=== PATIENT | female | born 2000 | race African-American/Black ===

== ENCOUNTER 2021-04-19 21:49 | Emergency (ER) | payer SELFPAY ==
[2021-04-20 00:23] LABS: BASOPHIL 0.5 % (0-2); EOSINOPHIL 3.7 % (0-5); HCT 37.1 % (37.0-47.0); HGB 12.2 g/dl (12.5-16.0); LYMPHOCYTE 32.7 % (15-48); MCH 29.4 pg (25.0-31.0); MCHC 32.9 g/dL (32.0-36.0); MCV 89.4 fL (78.0-100.0); MONOCYTE 6.9 % (0-12); MPV 10.4 fL (6.0-9.5); NRBC 0; PLT 281 K/uL (150-400); RBC 4.15 M/uL (4.20-5.40); WBC 5.6 K/uL (4.0-10.5)
[2021-04-20 00:46] LABS: BILIRUBIN NEGATIVE (NEGATIVE); BLOOD 3+ Ery/uL (NEGATIVE); CLARITY CLEAR (CLEAR); COLOR YELLOW (YELLOW); GLUCOSE (U) NORMAL (NORMAL); LEUKOCYTES NEGATIVE Leu/uL (NEGATIVE); NITRITE NEGATIVE (NEGATIVE); PROTEIN NEGATIVE (NEGATIVE)
[2021-04-20 00:52] LABS: URINARY RBC RARE; URINARY WBC RARE
[2021-04-20 00:53] LABS: BACTERIA TRACE
[2021-04-20 01:11] LABS: ALBUMIN 3.9 g/dL (3.4-5.0); BUN/CREAT RATIO (CALC) 9.7 RATIO; CREATININE 0.62 mg/dL (0.51-0.95); GLOBULIN (CALCULATION) 2.9 g/dL; POTASSIUM 3.8 mmol/L (3.5-5.1); TOTAL PROTEIN 6.8 g/dL (6.4-8.2)
[2021-04-20] MEDS ORDERED: ONDANSETRON ODT4 MG SL (01:42)
[2021-04-20] MEDS ORDERED: BENTYL10 MG PO (01:42)
== END 2021-04-20 02:00 | disposition home or self-care (01) ==
LOC: FER 21:49
PROVIDERS: Emergency Medicine Emergency Medical Services
DX: B34.9 Viral infection, unspecified (principal); F17.290 Nicotine dependence, other tobacco product, uncomplicated; J18.9 Pneumonia, unspecified organism; Z20.822 Contact with and (suspected) exposure to COVID-19; Z87.09 Personal history of other diseases of the respiratory system
CPT/HCPCS: 36415; 71045; 80053; 81001; 84484; 85025; 93005; J2405; J7120; U0002

== ENCOUNTER 2021-06-17 22:33 | Emergency (ER) | payer OTHER ==
[~2021-06-17 22:33] MED LIST: BENTYL10 MG PO; ONDANSETRON ODT4 MG SL
[2021-06-17 23:34] LABS: HCT 37.4 % (37.0-47.0); HGB 12.5 g/dl (12.5-16.0); MCH 29.4 pg (25.0-31.0); MCHC 33.4 g/dL (32.0-36.0); MPV 10.6 fL (6.0-9.5); RBC 4.25 M/uL (4.20-5.40); RDW 13.3 % (11.5-14.0); WBC 6.9 K/uL (4.0-10.5)
[2021-06-17 23:36] LABS: BILIRUBIN NEGATIVE (NEGATIVE); BLOOD 3+ Ery/uL (NEGATIVE); CLARITY CLEAR (CLEAR); COLOR YELLOW (YELLOW); GLUCOSE (U) NORMAL (NORMAL); LEUKOCYTES NEGATIVE Leu/uL (NEGATIVE); NITRITE NEGATIVE (NEGATIVE); PROTEIN NEGATIVE (NEGATIVE); UROBILINOGEN 0.2 mg/dL (0.2-1.0); pH 7.5 (5.0-9.0)
[2021-06-17 23:46] LABS: BACTERIA 1+; URINARY WBC RARE
[2021-06-18 00:06] LABS: ALBUMIN 4.7 g/dL (3.4-5.0); BILIRUBIN - TOTAL 0.6 mg/dL (0.2-1.0); BUN/CREAT RATIO (CALC) 9.1 RATIO; CREATININE 0.77 mg/dL (0.51-0.95); GLOBULIN (CALCULATION) 3.5 g/dL; TOTAL PROTEIN 8.2 g/dL (6.4-8.2)
[2021-06-18] MEDS ORDERED: METRONIDAZOLE500 MG PO ×3 (01:36→01:39)
[2021-06-21 00:08] LABS: CHLAMYDIA TRACHOMATIS, NAA Negative (Negative); NEISSERIA GONORRHOEAE, NAA Negative (Negative)
== END 2021-06-18 01:52 | disposition home or self-care (01) ==
LOC: FER 22:33
PROVIDERS: Emergency Medicine
DX: O03.4 Incomplete spontaneous abortion without complication (principal); O23.591 Infection of other part of genital tract in pregnancy, first trimester; O99.511 Diseases of the respiratory system complicating pregnancy, first trimester; J45.909 Unspecified asthma, uncomplicated; O99.331 Smoking (tobacco) complicating pregnancy, first trimester; F17.200 Nicotine dependence, unspecified, uncomplicated; Z3A.01 Less than 8 weeks gestation of pregnancy
CPT/HCPCS: 36415; 76817; 80053; 81001; 84702; 86850; 86900; 86901; 87210; 87491; 87591; 93005

== ENCOUNTER 2021-10-28 07:19 | Emergency (ER) | payer OTHER ==
[~2021-10-28 07:19] MED LIST changes: +METRONIDAZOLE500 MG PO
[2021-10-28 07:59] LABS: BILIRUBIN NEGATIVE (NEGATIVE); BLOOD 3+ Ery/uL (NEGATIVE); CLARITY CLEAR (CLEAR); COLOR YELLOW (YELLOW); GLUCOSE (U) NORMAL (NORMAL); LEUKOCYTES NEGATIVE Leu/uL (NEGATIVE); NITRITE NEGATIVE (NEGATIVE); PROTEIN NEGATIVE (NEGATIVE); UROBILINOGEN 0.2 mg/dL (0.2-1.0)
[2021-10-28 08:08] LABS: BACTERIA 1+; URINARY WBC RARE
[2021-10-28 09:19] LABS: BASOPHIL 0.4 % (0-2); HCT 38.4 % (37.0-47.0); HGB 12.9 g/dl (12.5-16.0); LYMPHOCYTE 18.7 % (15-48); MCH 30.4 pg (25.0-31.0); MCHC 33.6 g/dL (32.0-36.0); MCV 90.4 fL (78.0-100.0); MPV 10.4 fL (6.0-9.5); NEUTROPHIL 69.7 % (41-80); NRBC 0; PLT 261 K/uL (150-400); RBC 4.25 M/uL (4.20-5.40); RDW 12.7 % (11.5-14.0)
[2021-10-28 09:33] LABS: ALBUMIN 4.1 g/dL (3.4-5.0); BILIRUBIN - TOTAL 0.7 mg/dL (0.2-1.0); BUN/CREAT RATIO (CALC) 8.5 RATIO; CREATININE 0.59 mg/dL (0.51-0.95); GLOBULIN (CALCULATION) 2.7 g/dL; POTASSIUM 4.1 mmol/L (3.5-5.1); TOTAL PROTEIN 6.8 g/dL (6.4-8.2)
== END 2021-10-28 10:12 | disposition home or self-care (01) ==
LOC: FER 07:19
PROVIDERS: Emergency Medicine
DX: O20.0 Threatened abortion (principal); Z3A.01 Less than 8 weeks gestation of pregnancy
CPT/HCPCS: 36415; 76817; 80053; 81001; 84702; 85025

== ENCOUNTER 2022-03-02 03:52 | Emergency (ER) | payer OTHER ==
[2022-03-02 05:21] LABS: INFLUENZA A NAA NEGATIVE (NEGATIVE)
[2022-03-02 05:34] LABS: BASOPHIL 0.5 % (0-2); EOSINOPHIL 2.1 % (0-5); HCT 35.3 % (37.0-47.0); HGB 12.2 g/dl (12.5-16.0); LYMPHOCYTE 13.1 % (15-48); MCH 31.4 pg (25.0-31.0); MCHC 34.6 g/dL (32.0-36.0); MCV 90.7 fL (78.0-100.0); MONOCYTE 14.4 % (0-12); MPV 10.3 fL (6.0-9.5); NEUTROPHIL 69.4 % (41-80); NRBC 0; PLT 228 K/uL (150-400); RBC 3.89 M/uL (4.20-5.40); RDW 12.5 % (11.5-14.0); WBC 7.6 K/uL (4.0-10.5)
[2022-03-02 05:47] LABS: CORONAVIRUS 2019 SARS-COV-2 POSITIVE (NEGATIVE)
[2022-03-02] MEDS ORDERED: PAXLOVID CO-PA1 EAC1 PO (05:57)
[2022-03-02 05:58] LABS: ALBUMIN 3.4 g/dL (3.4-5.0); BILIRUBIN - TOTAL 0.4 mg/dL (0.2-1.0); BUN/CREAT RATIO (CALC) 8.7 RATIO; CREATININE 0.46 mg/dL (0.51-0.95); GLOBULIN (CALCULATION) 3.7 g/dL; POTASSIUM 3.9 mmol/L (3.5-5.1); TOTAL PROTEIN 7.1 g/dL (6.4-8.2)
== END 2022-03-02 06:48 | disposition home or self-care (01) ==
LOC: FER 03:52
PROVIDERS: Emergency Medicine
DX: O98.512 Other viral diseases complicating pregnancy, second trimester (principal); O99.512 Diseases of the respiratory system complicating pregnancy, second trimester; U07.1 COVID-19; J45.909 Unspecified asthma, uncomplicated; Z3A.25 25 weeks gestation of pregnancy
CPT/HCPCS: 36415; 80053; 85025; 99283; J7030; U0002